=== PATIENT | female | born 1995 | race African-American/Black ===

== ENCOUNTER 2017-06-15 11:18 | Outpatient (CLI) | payer OTHER | END 2017-06-15 12:55 | disposition home or self-care (01) | LOC: M LDO 11:18 | DX: O26.853 Spotting complicating pregnancy, third trimester (principal); Z3A.38 38 weeks gestation of pregnancy | CPT/HCPCS: 59025 ==

== ENCOUNTER 2017-06-29 05:46 | Outpatient (CLI) | payer OTHER | END 2017-06-29 07:20 | disposition home or self-care (01) | LOC: M LDO 05:46 | DX: O47.1 False labor at or after 37 completed weeks of gestation (principal); Z3A.40 40 weeks gestation of pregnancy | CPT/HCPCS: 59025 ==

== ENCOUNTER 2017-06-30 10:17 | Inpatient (IN) | payer OTHER ==
[2017-06-30] MEDS: LACTATED RINGER'S 1000 ML IV (12:09)
[2017-06-30 12:28] LABS: HEMATOCRIT 33.3 % (36.0-47.0); HEMOGLOBIN 9.4 g/dl (12.0-16.0); MEAN CORPUSCULAR HEMOGLOBIN 20.9 pg (27.0-33.0); MEAN CORPUSCULAR HGB CONC 28.2 g/dl (32.0-36.5); MEAN CORPUSCULAR VOLUME 74.2 fl (80.0-96.0); PLATELET COUNT, AUTOMATED 131 10^3/uL (150-450); RED BLOOD COUNT 4.49 10^6/uL (4.00-5.40); RED CELL DISTRIBUTION WIDTH 19.9 % (11.5-14.5); WHITE BLOOD COUNT 13.4 10^3/uL (4.0-10.0)
[2017-06-30] MEDS: AMPICILLIN SOD 2 GM in APPROPRIATE DILUENT 20 ML IV (12:38)
[2017-06-30] MEDS: BUTORPHANOL 2 MG/ML INJ (J0595) IV ×3 (12:41→21:15)
[2017-06-30] MEDS: miSOPROStol 25 MCG 1/4 TAB (S0191) PO ×2 (13:08→17:36)
[2017-06-30] MEDS: LR 1,000 ML IV ×2 (13:12→17:25)
[2017-06-30] MEDS: AMPICILLIN SOD 1 GM in APPROPRIATE DILUENT 10 ML IV ×2 (16:33→20:00)
[2017-06-30] MEDS: miSOPROStol 50 MCG 1/2 TAB (S0191) PO (20:00)
[2017-06-30] MEDS ORDERED: AMPICILLIN 1 GM VIAL As Ordered (20:24)
[2017-06-30] MEDS ORDERED: FENTANYL 2MCG/ML ROPIVACAINE 0.2% IN 0.9% NACL 200ML IVBAG As Ordered (22:04)
[2017-06-30] MEDS ORDERED: EPIDURAL/PCA KEYS XX (22:50)
[2017-06-30] MEDS ORDERED: REFRIGERATOR IV KEYS XX (22:50)
[2017-06-30] MEDS ORDERED: ONDANSETRON 4MG/2ML VIAL (J2405) IV (22:50)
[2017-06-30] MEDS ORDERED: NALOXONE INJ 0.4 MG/1 ML VIAL (J2310) IV (22:50)
[2017-06-30] MEDS ORDERED: ePHEDrine SULFATE 25 MG/5 ML(5MG/ML) SYRINGE IV (22:50)
[2017-06-30] MEDS ORDERED: EPIDURAL COMMENT XX (22:50)
[2017-06-30] MEDS ORDERED: LACTATED RINGER'S 1000 ML IV (22:50)
[2017-06-30] MEDS ORDERED: diphenhydrAMINE INJ 50MG/ML VIAL (J1200) IV (22:50)
[2017-06-30] MEDS ORDERED: FENTANYL/ROPIVACAINE/NACL BAG 200 ML EPIDURAL (22:50)
[2017-06-30] MEDS ORDERED: OXYTOCIN 30 UNITS IN 0.9% NaCl 500ML IV BAG (J2590) As Ordered (23:12)
[2017-07-01] MEDS: OXYTOCIN DRIP 30 UNITS in APPROPRIATE DILUENT 1 EA IV (00:29)
[2017-07-01] MEDS ORDERED: RHOGAM 300 MCG (1500 IU) INJ (J2790) IM (00:30)
[2017-07-01] MEDS ORDERED: MEASLES,MUMPS,RUBELLA VACCINE INJ (MMR-II) (90707) SC (00:30)
[2017-07-01] MEDS: LIDOCAINE 1% MDV 20ML VIAL INFIL (00:30)
[2017-07-01] MEDS ORDERED: DIBUCAINE 1% OINTMENT 30GM TOP (00:30)
[2017-07-01] MEDS: LR 1,000 ML IV (03:45)
[2017-07-01] MEDS: PRENATAL VITAMINS CHEWABLE TABLET PO (08:50)
[2017-07-01] MEDS: IBUPROFEN 800 MG TAB PO ×2 (08:51→20:45)
[2017-07-01] MEDS: ACETAMINOPHEN 500 MG TAB PO (12:31)
[2017-07-01] MEDS: DOCUSATE SODIUM 100 MG CAP PO (20:45)
[2017-07-02] MEDS: PRENATAL VITAMINS CHEWABLE TABLET PO (08:41)
[2017-07-02] MEDS: IBUPROFEN 800 MG TAB PO (08:58)
== END 2017-07-02 11:30 | disposition home or self-care (01) | DRG 775 ==
LOC: M LDO 10:17 → M OBS 07-01 03:13 → M LDI 11:21
PROVIDERS: Obstetrics & Gynecology
PROC: 10E0XZZ Delivery of Products of Conception, External Approach (ICD-10-PCS; principal; 2017-06-30)
PROC: 0UQMXZZ Repair Vulva, External Approach (ICD-10-PCS; 2017-06-30)
DX: O48.0 Post-term pregnancy (principal); Z37.0 Single live birth; Z3A.40 40 weeks gestation of pregnancy; O99.824 Streptococcus B carrier state complicating childbirth; O71.82 Other specified trauma to perineum and vulva

== ENCOUNTER 2018-02-11 10:32 | Emergency (ER) | payer OTHER ==
[2018-02-11 13:03] LABS: BEDSIDE GLUCOSE 86 MG/DL (70-105)
[2018-02-11 13:05] LABS: BASO % 0.2 % (0.0-1.0); EOS % 0.2 % (0.0-3.0); HEMATOCRIT 29.7 % (36.0-47.0); HEMOGLOBIN 8.7 g/dl (12.0-15.5); IMMATURE GRANULOCYTE % 0.2 % (0-3.0); LYMPH # 1.4 10^3/uL (1.5-6.5); LYMPH % 16.5 % (24.0-44.0); MEAN CORPUSCULAR HEMOGLOBIN 19.8 pg (27.0-33.0); MEAN CORPUSCULAR HGB CONC 29.3 g/dl (32.0-36.5); MEAN CORPUSCULAR VOLUME 67.7 fl (80.0-96.0); MONO # 0.5 10^3/uL (0.0-0.8); MONO % 5.9 % (0.0-5.0); NEUTROPHILS # 6.3 10^3/uL (1.8-7.7); PLATELET COUNT, AUTOMATED 180 10^3/uL (150-450); RED BLOOD COUNT 4.39 10^6/uL (4.00-5.40); RED CELL DISTRIBUTION WIDTH 21.7 % (11.5-14.5); WHITE BLOOD COUNT 8.2 10^3/uL (4.0-10.0)
[2018-02-11] MEDS: NS 1,000 ML IV (13:05)
[2018-02-11 13:13] LABS: INR 1.03; PROTHROMBIN TIME 13.6 SECONDS (12.1-14.4)
[2018-02-11 13:36] LABS: ANION GAP 8 MEQ/L (8-16); BLOOD UREA NITROGEN 8 MG/DL (7-18); CALCIUM LEVEL 8.4 MG/DL (8.5-10.1); CARBON DIOXIDE LEVEL 22 MEQ/L (21-32); CHLORIDE LEVEL 107 MEQ/L (98-107); CK-MB VALUE MASS < 1.0 NG/ML (<3.6); CPK CREATINE PHOSPHOKINASE 130 U/L (26-192); CREATININE FOR GFR 0.54 MG/DL (0.55-1.30); ETHYL ALCOHOL (ETHANOL) < 0.003 % (0.000-0.010); GLOMERULAR FILTRATION RATE > 60.0 (>60); GLUCOSE, FASTING 67 MG/DL (70-100); MB/CK RELATIVE INDEX 0.77 (< OR =4); SODIUM LEVEL 137 MEQ/L (136-145); TROPONIN I < 0.02 NG/ML (< 0.10)
[2018-02-11 14:47] LABS: KETONE, URINE AUTO RFX TRACE mg/dL (NEGATIVE); LEUKOCYTE ESTERASE UR AUTO RFX NEGATIVE (NEGATIVE); MUCUS, URINE RFX SMALL (NEGATIVE); NITRITE, URINE AUTO RFX NEGATIVE (NEGATIVE); RBC, URINE AUTO RFX 0 /HPF (0-3); SPECIFIC GRAVITY UR AUTO RFX 1.013 (1.002-1.035); SQUAM EPITHELIAL CELL UR AURFX 1 /HPF (0-6); WBC, URINE AUTO RFX 0 /HPF (0-3)
[2018-02-11 15:13] LABS: AMPHETAMINES LEVEL URINE NEGATIVE (NEGATIVE); BARBITURATES URINE NEGATIVE (NEGATIVE); BENZODIAZEPINES URINE NEGATIVE (NEGATIVE); CANNABINOIDS URINE NEGATIVE (NEGATIVE); COCAINE METABOLITE URINE NEGATIVE (NEGATIVE); METHADONE URINE NEGATIVE (NEGATIVE); OPIATES URINE NEGATIVE (NEGATIVE); PHENCYCLIDINE URINE NEGATIVE (NEGATIVE)
== END 2018-02-11 14:36 | disposition home or self-care (01) ==
LOC: M ED 10:32
DX: O99.89 Other specified diseases and conditions complicating pregnancy, childbirth and the puerperium (principal); R55 Syncope and collapse; O99.011 Anemia complicating pregnancy, first trimester; E16.2 Hypoglycemia, unspecified; Z3A.12 12 weeks gestation of pregnancy
CPT/HCPCS: 93976

== ENCOUNTER → 2018-03-05 | Outpatient (CLI) | payer OTHER | LOC: M RAD 12:09 | DX: Z36.89 Encounter for other specified antenatal screening (principal); Z3A.16 16 weeks gestation of pregnancy | CPT/HCPCS: 76816 ==

== ENCOUNTER 2018-06-19 14:02 | Outpatient (CLI) | payer OTHER ==
[~2018-06-19] VITALS: Ht 152.4 cm; Wt 66.4 kg
[~2018-06-19 14:02] MED LIST: IBUP-1114 PO; IRON50TA PO; MAPA500T2 PO; PRENTAB9 PO
[2018-06-19 14:10] VITALS: BP 109/64
[2018-06-19] MEDS ORDERED: PRENTAB9 PO (14:59)
[2018-06-19 15:12] VITALS: BP 107/55
[2018-06-19 18:12] LABS: CHLAMYDIA DNA AMPLIFICATION NEGATIVE (NEGATIVE); GC DNA AMPLIFICATION NEGATIVE (NEGATIVE)
--- NOTE | 2018-06-20 07:51 | HPE ---
DATE OF ADMISSION: 06/19/2018 This is a 23-year-old, 2, para 1, last menstrual period (LMP) 11/12/2017, expected date of confinement (EDC) 08/19/2018, at 31 and 3 weeks of gestation who came in by ambulance saying she is yumiko every 2-3 minutes. Risk factors is she has short interval , has had a baby 1 year ago and she has thrombocytopenia. Her past history is in June, had spontaneous vaginal delivery of a male, 7 pounds 7 ounces. LABS: Show B+, HIV negative, hepatitis negative, RPR negative, rubella immune, Varicella immune. Pap showed atypical squamous cells of undetermined etiology (ASCUS), human papillomavirus (HPV) positive. Urine was negative. Gonorrhea and chlamydia negative. 1-hour glucose was not available or has not been done. Her blood pressure is 107/55, respirations are 16, pulse 95, and temperature 97.9. Her urine was not available, but she was in the bathroom having profuse diarrhea. On examination, she did not appear distressed. Symphysis fundus height is 32, vertex presenting. Sterile examination, fibronectin (FFN) was performed. No vaginal loss or bleeding. DNA for gonorrhea and chlamydia were done were negative, FFN was done and was negative. Ultrasound indicated MANUEL of 13.5 in three quadrants, vertex presenting. heart was 143. Placenta was anterior. Cervix was 3.2 cm. No funneling. Spontaneous respirations were noted and four limb movement was noted. This lady had a category one strip, never had a contraction. She was discharged undelivered to follow up with her routine appointment. In summary, we have a 31 and 1 week of gestation who has some diarrhea secondary to probably flu and no evidence of active labor.
== END 2018-06-19 16:30 | disposition home or self-care (01) ==
LOC: M LDO 14:02
PROVIDERS: ATTEND Obstetrics & Gynecology
DX: O47.03 False labor before 37 completed weeks of gestation, third trimester (principal); O36.8290 Fetal anemia and thrombocytopenia, unspecified trimester, not applicable or unspecified; O99.613 Diseases of the digestive system complicating pregnancy, third trimester; R19.7 Diarrhea, unspecified; Z3A.31 31 weeks gestation of pregnancy
CPT/HCPCS: 59025; 82731; 87070; 87491; 87591; G0378; G0463

== ENCOUNTER 2018-08-03 06:04 | Inpatient (IN) | payer OTHER ==
[~2018-08-03] VITALS: Ht 152.4 cm; Wt 68.7 kg
[2018-08-03] VITALS (19 sets, daily range): BP systolic 101–146; BP diastolic 54–79
[~2018-08-03 06:04] MED LIST changes: +IRON240T PO
[2018-08-03] MEDS ORDERED: LACTATED RINGER'S 1000 ML IV STA (07:09)
--- NOTE | 2018-08-03 07:25 | HPEPDOC ---
Obstetrical History & Physical General Date of Admission Aug 03, 2018 at 07:00 History of Present Illness 23 yo at 37+5 weeks by LMP of [id number] c/w 24+1 week US on [id number] p resents to L&D with regular, painful contractions that started at ~0200. She denies any vaginal bleeding or leakage of fluid. She endorses movement. Chief Complaint: Contractions, term Information Provided By: Patient Age: 23 : 2 Term: 1 Pre-term: 0 Abortions: 0 Livin Care Care: Good Care Dating Final EDC: August 19, 2018 Final EDC for Daily Update: August 19, 2018 Final EDC by: LMP LMP: Nov 12, 2017 Antepartum Course Diagnos(e)s Late to care Closely spaced pregnancies (last delivery in June 2017) Initial platelets 104. Repeat at 32 weeks was 180. Anemia Past Medical History Past Obstetrical History : Past Obstetrical History: Multigravida Type of Delivery: Spontaneous Vaginal Del. EXPEDITER History: No pertinent history Past Medical History Medical History Denies Surgical History: Denies/None Family History Significant Family History: No pertinent family hx Family History Noncontributory Social History Marital Status: Other Psychosocial History: No pertinent psych hx * Smoker: non-smoker Alcohol: Denies Drugs: denies Imunizations Tdap status: current Influenza Status: current Allergies Coded Allergies: No Known Allergies (Unverified , 07/11/18) Medications Scheduled Ferrous Gluconate (Iron) 240 Mg Tab, 1 TAB PO TID Physical Examination Physical Examination GENERAL: Alert and oriented times three. ABDOMEN: Gravid and non-tender to touch. FETUS: Is vertex (VTX) by sterile vaginal examination (SVE) EXTREMITIES: No edema. Laboratory Data 24H LABS Laboratory Tests 2 08/03/18 07:02: Serology Scanned Report Hepatitis B Testing Urine Culture: No Growth Pertinent Laboratoy Data Blood Type: B+ RBC Antibody Screen: Negative HIV: Negative Hepatitis B: Negative Hepatitis C: Unknown Rapid Plasma Reagin: Nonreactive Rubella: Immune Varicella: Immune Chlamydia/Gonorrhea: Negative Group B Streptococcus: Unknown Quad Screen Test: Unknown Cystic Fibrosis: Unknown Glucose Tolerance Test: 93 Anatomy Ultrasound Placenta Location: Posterior Normal Anatomy: Yes Placenta Previa: No Steroid Therapy Steroid Therapy: No Vaginal Examination Dilation: 4 cm Effacement: 80% Station: -2 Cervical Consistency: Soft Cervical Position: Middle Presentation: Cephalic presentation Position: Vertex (occiput) Assessment Heart Rate (FHR): 130 Variability: Moderate Accelerations: Positive Decelerations: None Tocometer Contractions: Yes Frequency: regular Duration: greater than 60 seconds Strength: palpated as moderate Assessment/Plan Assessment 23 yo at 37+5 weeks presented in active labor. Plan Admit for expectant management of labor. Apply IV fluids. GBS unknown. Unclear if she received swab. She is however term. If she remains unknown then only indication for prophylaxis would be ruptured membranes for >18 hours or a previous child with GBS related sepsis. Patient may have epidural if desired. Anticipate . DO MIAH Hsu CHRISTOPHER J. DO Aug 03, 2018 07:25
[2018-08-03 08:21] LABS: BASO % 0.2 % (0.0-1.0); EOS % 0.2 % (0.0-3.0); HEMATOCRIT 34.1 % (36.0-47.0); HEMOGLOBIN 9.8 g/dl (12.0-15.5); LYMPH # 1.7 10^3/uL (1.5-6.5); LYMPH % 13.1 % (24.0-44.0); MEAN CORPUSCULAR HEMOGLOBIN 21.1 pg (27.0-33.0); MEAN CORPUSCULAR HGB CONC 28.7 g/dl (32.0-36.5); MEAN CORPUSCULAR VOLUME 73.3 fl (80.0-96.0); MONO # 0.9 10^3/uL (0.0-0.8); MONO % 6.8 % (0.0-5.0); NEUTROPHILS # 10.5 10^3/uL (1.8-7.7); NEUTROPHILS % 79.2 % (36.0-66.0); PLATELET COUNT, AUTOMATED 127 10^3/uL (150-450); RED BLOOD COUNT 4.65 10^6/uL (4.00-5.40); WHITE BLOOD COUNT 13.3 10^3/uL (4.0-10.0)
[2018-08-03] MEDS ORDERED: FENTANYL 2MCG/ML ROPIVACAINE 0.2% IN 0.9% NACL 100ML IVBAG As Ordered ONE (08:37)
[2018-08-03] MEDS: PRENATAL VITAMINS CHEWABLE TABLET PO SCH (09:00)
--- NOTE | 2018-08-03 09:16 | IPNPDOC ---
Text Note Date of Service The patient was seen on 08/03/18. NOTE [id number] @ 0903- SBAR from Dr. Juan. Assumed care at 0830- 23 yo @ 37+5 presented to L&D in active labor today S: Pt is sitting up getting and epidural O: VS- WNL, afebrile FHR-135, minimal variability, no accels, repetitive early decelerations CTX- Q 3-4 min, lasting < 90 seconds SVE- deferred LABS B positive Hep B- NR RPR- NR HIV- negative Rubella-immune Varicella- immune PMH DENIES PSH DENIES A: 23 yo @ 37+5 in active labor with CAT I FHR tracing P: Continue to monitor and assess prn VS,Fishbone, I+O VS, Fishbone, I+O Laboratory Tests 08/03/18 08:08 Red Blood Count 4.65, Mean Corpuscular Volume 73.3 L, Mean Corpuscular Hemoglobi n 21.1 L, Mean Corpuscular Hemoglobin Concent 28.7 L, Red Cell Distribution Width 24.3 H, Neutrophils (%) (Auto) 79.2 H, Lymphocytes (%) (Auto) 13.1 L, Monocytes (%) (Auto) 6.8 H, Eosinophils (%) (Auto) 0.2, Basophils (%) (Auto) 0.2, Neutrophils # (Auto) 10.5 H, Lymphocytes # (Auto) 1.7, Monocytes # (Auto) 0.9 H, Eosinophils # (Auto) 0.0, Basophils # (Auto) 0.0 Vital Signs Date Time Temp Pulse Resp B/P (MAP) Pulse Ox O2 Delivery O2 Flow Rate FiO2 08/03/18 08:04 78 112/72 (85) GOLDEN MARQUEZ CNM Aug 03, 2018 09:16
--- NOTE | 2018-08-03 09:25 | IPNPDOC ---
Text Note Date of Service The patient was seen on 08/03/18. NOTE [id number] @ 0924 Reports increased pressure and desire to push. SVE- 8/100/0 with bulging bag VS,Fishbone, I+O VS, Fishbone, I+O Laboratory Tests 08/03/18 08:08 Red Blood Count 4.65, Mean Corpuscular Volume 73.3 L, Mean Corpuscular Hemoglobin 21.1 L, Mean Corpuscular Hemoglobin Concent 28.7 L, Red Cell Distribution Width 24.3 H, Neutrophils (%) (Auto) 79.2 H, Lymphocytes (%) (Auto) 13.1 L, Monocytes (%) (Auto) 6.8 H, Eosinophils (%) (Auto) 0.2, Basophils (%) (Auto) 0.2, Neutrophils # (Auto) 10.5 H, Lymphocytes # (Auto) 1.7, Monocytes # (Auto) 0.9 H, Eosinophils # (Auto) 0.0, Basophils # (Auto) 0.0 Vital Signs Date Time Temp Pulse Resp B/P (MAP) Pulse Ox O2 Delivery O2 Flow Rate FiO2 08/03/18 08:58 106 116/73 (87) 08/03/18 08:42 97.0 GOLDEN MARQUEZ CNM Aug 03, 2018 09:25
[2018-08-03] MEDS ORDERED: LR 1,000 ML IV SCH (10:01)
[2018-08-03] MEDS ORDERED: LACTATED RINGER'S 1000 ML IV PRN (10:15)
[2018-08-03] MEDS ORDERED: diphenhydrAMINE INJ 50MG/ML VIAL (J1200) IV PRN (10:15)
[2018-08-03] MEDS ORDERED: ePHEDrine SULFATE 25 MG/5 ML(5MG/ML) SYRINGE IV PRN (10:15)
[2018-08-03] MEDS ORDERED: EPIDURAL/PCA KEYS XX PRN (10:15)
[2018-08-03] MEDS ORDERED: EPIDURAL COMMENT XX SCH (10:15)
[2018-08-03] MEDS ORDERED: NALOXONE INJ 0.4 MG/1 ML VIAL (J2310) IV PRN (10:15)
[2018-08-03] MEDS ORDERED: ONDANSETRON 4MG/2ML VIAL (J2405) IV PRN ×2 (10:15→12:15)
[2018-08-03] MEDS ORDERED: REFRIGERATOR IV KEYS XX PRN (10:15)
[2018-08-03] MEDS ORDERED: FENTANYL/ROPIVACAINE/NACL BAG 100 ML EPIDURAL SCH (10:15)
[2018-08-03] MEDS ORDERED: OXYTOCIN 30 UNITS IN 0.9% NaCl 500ML IV BAG (J2590) As Ordered ONE (10:40)
--- NOTE | 2018-08-03 11:47 | IPNPDOC ---
Text Note Date of Service The patient was seen on 08/03/18. NOTE Called in by CRYSTAL Squires to assist after delivery, concern for possible cervical lac/bleeding. 100 cc clot removed from Cx/NEO. Isolated the cervix and an old lac that had stopped bleeding noted at 0400. Reinforced with 3-0 vicryl, figure of eight. Hemostasis noted. Sessions A-FIB/HERMAN A-FIB History Current/History of A-Fib/PAF?: No Current Oral Anticoagulant The: No VS,Fishbone, I+O VS, Fishbone, I+O Laboratory Tests 08/03/18 08:08 Red Blood Count 4.65, Mean Corpuscular Volume 73.3 L, Mean Corpuscular Hemoglobin 21.1 L, Mean Corpuscular Hemoglobin Concent 28.7 L, Red Cell Distribution Width 24.3 H, Neutrophils (%) (Auto) 79.2 H, Lymphocytes (%) (Auto) 13.1 L, Monocytes (%) (Auto) 6.8 H, Eosinophils (%) (Auto) 0.2, Basophils (%) (Auto) 0.2, Neutrophils # (Auto) 10.5 H, Lymphocytes # (Auto) 1.7, Monocytes # (Auto) 0.9 H, Eosinophils # (Auto) 0.0, Basophils # (Auto) 0.0 Vital Signs Date Time Temp Pulse Resp B/P (MAP) Pulse Ox O2 Delivery O2 Flow Rate FiO2 08/03/18 10:17 103 112/76 (88) 08/03/18 08:42 97.0 SESSIONS,JULIO Edwards MD Aug 03, 2018 11:47
--- NOTE | 2018-08-03 12:11 | DNPDOC ---
[facility] Delivery Note Delivery Note DATE OF DELIVERY: [id number] @ 1051 PREDELIVERY DIAGNOSIS: 37+5 weeks' gestation and labor. POST DELIVERY DIAGNOSIS: Delivered. PROCEDURE: CYBER SYSTEMS ENGINEER: Golden Marquez CNM ANESTHESIA: epidural ESTIMATED BLOOD LOSS: 350 mL. FINDINGS: 7 lbs 3 oz, (3260 grams) male , Score 9/9 DELIVERY SUMMARY: Patient is a 23 yo @ 37+5 who was admitted to labor and delivery for active labor. Progressed to c/c/+2 with strong urge to push with epidural infusing. SROM at time of SVE with meconium noted. Delivery via of a viable male to a clean field; presented OA with no nuchal cord noted: anterior shoulder Left did not deliver. Pulled mother's butt off the bed, Debbie by nursing staff, unable to get to posterior arm, Wood's screw released the left shoulder. Less than 60 sec from delivery of infant head to body. Anterior shoulder delivered with mild downward traction, posterior shoulder and corpus delivered spontaneously. Cord clamped x 2 and cut by this provider. taken to warmer with vigorous cry. Spontaneous delivery of placenta approx 5 min later, intact with 3 vessel cord. Pitocin bolus started. Fundal massage applied and vaginal vault swept for clots. Bleeding continued. 1000 mcg Cytotec IN, then methergine 0.2 mg IM. Perineum examined. Skid grace on perineum, left labia, and periurethral. All skid grace hemostatic. Uterus swep for for clots. Bleeding continued. Dr. Benton called to bedside. Cervical laceration noted at 4 o'clock and repaired by Dr. Benton. Excellent hemostasis. Fundus firm @ U-2. Mother and are bonding well and stable in delivery room. Anticipate routine PP course. EBL-350 ml - 9/9 GOLDEN MARQUEZ CNM Aug 03, 2018 12:11
[2018-08-03] MEDS ORDERED: PROMETHAZINE 25 MG TAB PO PRN (12:15)
[2018-08-03] MEDS ORDERED: DOCUSATE SODIUM 100 MG CAP PO PRN (12:15)
[2018-08-03] MEDS ORDERED: MOM 30ML SUSPENSION UDC PO PRN (12:15)
[2018-08-03] MEDS ORDERED: miSOPROStol 25 MCG 1/4 TAB (S0191) PR ONE (12:30)
[2018-08-03] MEDS ORDERED: OXYTOCIN DRIP 30 UNITS in APPROPRIATE DILUENT 1 EA IV SCH (12:30)
[2018-08-03] MEDS ORDERED: METHYLERGONOVINE MALEATE 0.2 MG/ML VIAL (J2210) IM ONE (12:30)
[2018-08-03] MEDS ORDERED: miSOPROStol 200 MCG TAB (S0191) PR ONE (12:45)
[2018-08-03] MEDS: IBUPROFEN 800 MG TAB PO PRN (15:54)
[2018-08-03] MEDS: ACETAMINOPHEN 500 MG TAB PO PRN (20:02)
[2018-08-04 06:00] VITALS: BP 117/60
--- NOTE | 2018-08-04 06:47 | IPNPDOC ---
Progress Note Date of Service: Aug 04, 2018 Day#: 1 Progress Note SUBJECT: Ms. Reagan is a 23 yo G2 now P2002 status post uncomplicated spontaneous vaginal delivery at 37+5 weeks' at approximately 1051 hours on [id number] of a male , 7 pounds 3 ounces (3260 grams) with cervical la ceration and repair, doing well day # 1. She has been ambulating, voiding spontaneously without issue and tolerating regular diet. Breast and formula feeding. Reports lochia is like a normal period. Patient is ambulating well. Reports some cramping with . Denies any pain. Voiding and stooling without difficulty. OBJECTIVE: VITAL SIGNS: WNL, afebrile A&O x3 Breath sounds CTA Heart rate: RRR, no murmurs, rubs or gallops. Abdomen: Fundus firm at U-2. Soft, NTTP. moderate lochia. ASSESSMENT: Ms. Reagan is a 23 yo G2 now P2002 status post uncomplicated spontaneous vaginal delivery after presenting in active labor with spontaneous rupture of membranes (SROM), delivered at 1051 hours on [id number] at 37+5 wks, doing well on day # 1. Vitals within normal limits, afebrile, hemodynamically stable with no evidence of infection. PLAN: 1. Discharge to home today. 2. Tylenol and Motrin for pain. 3. Encourage breast feeding and ambulation. 4. Routine PP visit in 6 weeks in clinic. 5. Discussed return precautions at length. VS, I&O, [facility] Sign[facility]/I&O Vital Signs Date Time Temp Pulse Resp B/P (MAP) Pulse Ox O2 Delivery O2 Flow Rate FiO2 08/04/18 06:00 97.6 98 17 117/60 (79) 98 I&O- Last 24 Hours up to 6 AM 08/04/18 06:00 Intake Total 2562 ml Output Total 1300 ml Balance 1262 ml Laboratory Data 24H LABS Laboratory Tests 2 08/03/18 07:02: Serology Scanned Report Hepatitis B Testing 08/03/18 08:08: Immature Granulocyte % (Auto) 0.5, White Blood Count 13.3H, Red Blood Count 4.65, Hemoglobin 9.8L, Hematocrit 34.1L, Mean Corpuscular Volume 73.3L, Mean Corpuscular Hemoglobin 21.1L, Mean Corpuscular Hemoglobin Concent 28.7L, Red Cell Distribution Width 24.3H, Platelet Count 127L, Neutrophils (%) (Auto) 79.2H, Lymphocytes (%) (Auto) 13.1L, Monocytes (%) (Auto) 6.8H, Eosinophils (%) (Auto) 0.2, Basophils (%) (Auto) 0.2, Neutrophils # (Auto) 10.5H, Lymphocytes # (Auto) 1.7, Monocytes # (Auto) 0.9H, Eosinophils # (Auto) 0.0, Basophils # (Auto) 0.0, Nucleated Red Blood Cells % (auto) 0.0 CBC/BMP Laboratory Tests 08/03/18 08:08 Red Blood Count 4.65, Mean Corpuscular Volume 73.3 L, Mean Corpuscular Hemoglobin 21.1 L, Mean Corpuscular Hemoglobin Concent 28.7 L, Red Cell Distribution Width 24.3 H, Neutrophils (%) (Auto) 79.2 H, Lymphocytes (%) (Auto) 13.1 L, Monocytes (%) (Auto) 6.8 H, Eosinophils (%) (Auto) 0.2, Basophils (%) (Auto) 0.2, Neutrophils # (Auto) 10.5 H, Lymphocytes # (Auto) 1.7, Monocytes # (Auto) 0.9 H, Eosinophils # (Auto) 0.0, Basophils # (Auto) 0.0 GOLDEN MARQUEZ [facility] Aug 04, 2018 06:47
[2018-08-04] MEDS: PRENATAL VITAMINS CHEWABLE TABLET PO SCH (07:46)
[2018-08-04] MEDS: IBUPROFEN 800 MG TAB PO PRN ×2 (09:11→21:00)
[2018-08-04 09:15] VITALS: BP 124/73
[2018-08-04] MEDS ORDERED: ISOVUE-370 76% 100ML VIAL (Q9967) As Ordered ONE (10:39)
[2018-08-04] MEDS: GASTROGRAFIN SOLUTION 30ML PO SCH ×2 (11:58→12:38)
[2018-08-04] MEDS: ACETAMINOPHEN 500 MG TAB PO PRN (14:38)
--- NOTE | 2018-08-04 14:56 | REP ---
CT ABDOMEN AND PELVIS WITH CONTRAST: HISTORY: Abdominal pain. CONTRAST: Isovue 370, 100 mL. The liver, gallbladder, pancreas, spleen, adrenal glands and kidneys are normal in appearance. There is no mass or adenopathy. The visualized lungs are clear. The uterus is enlarged and heterogeneous in density. There is minimal heterogeneous with contrast. The uterus measures 11.7 cm in transverse x 10.2 cm in AP dimensions. A small amount of free fluid is present in the pelvis. The urinary bladder is normal in appearance. There is no fracture or subluxation. IMPRESSION: The uterus is enlarged and heterogeneous in density. This is associated with a small amount of free fluid. Electronically Signed by Jake Dickinson MD 08/04/2018 03:01 P
[2018-08-04 18:00] VITALS: BP 112/62
--- NOTE | 2018-08-05 05:16 | DS.PDOC ---
Discharge Summary General Date of Admission Aug 03, 2018 at 07:00 Date of Discharge [id number] Discharge Summary ADMITTING DIAGNOSES: Active labor DISCHARGE DIAGNOSES: Same, HOSPITAL COURSE: Admitted and delivery uncomplicated, . course uncomplicated. DISCHARGE MEDICATIONS: Motrin, Lanolin DISCHARGE INSTRUCTIONS: Nothing in the vagina for 6 weeks. F/U in OBGYN clinic in 6-8 weeks. Sessions Vital Signs/I&Os Vital Signs Date Time Temp Pulse Resp B/P (MAP) Pulse Ox O2 Delivery O2 Flow Rate FiO2 08/04/18 18:00 98.2 74 18 112/62 (79) 08/04/18 09:15 100 Discharge Medications Scheduled Ferrous Gluconate (Iron) 240 Mg Tab, 1 TAB PO TID, (Reported) Allergies Coded Allergies: No Known Allergies (Unverified , 07/11/18) SESSIONS,JULIO Edwards MD Aug 05, 2018 05:16
--- NOTE | 2018-08-05 05:22 | IPNPDOC ---
Text Note Date of Service The patient was seen on 08/05/18. NOTE PPD2 States feeling well, pain controlled with prescribed meds. Abdom pain is much better. CT was neg. Baby bonding and feeding well. No heavy VB. Lochia slowing. Ambulatory. Tolerating PO without issues. Voiding spont. No CP/LP/SOB. VSSAF NAD A&O LE no C/C/E Ut at U-2, firm a/p: Doing well. Cont routine care. D/C today. Sessions A-FIB/HERMAN A-FIB History Current/History of A-Fib/PAF?: No Current Oral Anticoagulant The: No VS,Fishbone, I+O VS, Fishbone, I+O Vital Signs Date Time Temp Pulse Resp B/P (MAP) Pulse Ox O2 Delivery O2 Flow Rate FiO2 08/04/18 18:00 98.2 74 18 112/62 (79) 08/04/18 09:15 100 SESSIONS,JULIO Edwards MD Aug 05, 2018 05:22
[2018-08-05] MEDS ORDERED: IBUP80TA PO (05:33)
[2018-08-05 06:50] VITALS: BP 112/57
[2018-08-05] MEDS: PRENATAL VITAMINS CHEWABLE TABLET PO SCH (09:00)
== END 2018-08-05 14:45 | disposition home or self-care (01) | DRG 768 ==
LOC: M LDO 06:04 → M LDI 07:00 → M OBS 16:14
PROVIDERS: ADMIT Obstetrics & Gynecology; ATTEND Obstetrics & Gynecology
PROC: 10E0XZZ Delivery of Products of Conception, External Approach (ICD-10-PCS; principal; 2018-08-03)
PROC: 0UQC7ZZ Repair Cervix, Via Natural or Artificial Opening (ICD-10-PCS; 2018-08-03)
DX: O77.0 Labor and delivery complicated by meconium in amniotic fluid (principal); Z37.0 Single live birth; O71.3 Obstetric laceration of cervix; Z3A.37 37 weeks gestation of pregnancy